=== PATIENT | female | born 1945 | race Caucasian/White ===

== ENCOUNTER 2023-11-15 07:51 | Inpatient (IN) | payer MEDICARE, OTHER, SELFPAY ==
[2023-11-15 08:23] VITALS: BP 106/60
[2023-11-15 08:37] VITALS: BMI 48.9
[2023-11-15 09:36] LABS: Hematocrit 37.2 % (37.0-47.0); Hemoglobin 12.5 g/dL (12.0-16.0); Mean Corp Hgb Conc. 33.6 g/dL (33.0-37.0); Mean Corpuscular Hgb 29.9 pg (27.0-31.0); Mean Platelet Volume 9.3 fL (7.4-10.4); Platelet Count 260 10^3/uL (130-400); Red Blood Cell Count 4.18 10^6/uL (4.20-5.40); Red Cell Dist. Width 13.2 % (11.5-14.5); White Blood Cell Count 7.3 10^3/uL (4.8-10.8)
--- NOTE | 2023-11-15 10:19 | W.PN.CARDCBS ---
Addendum entered and electronically signed by Xander Rubi MD 11/15/23 14:30:
Attending addendum: Patient seen and examined. PA note reviewed and findings confirmed by me. Briefly, this is a 78 y/o female with hx of PVI now with recurring atrial fibrillation. She presents today for Tikosyn loading.
Original Note:
Today's Communication / Plan
-
Reviewed Tikosyn loading with patient and , proceed with 500 mcg q 12 hours and follow ECG
Impression / Plan
-
PCP: Dr. Parker
Management Scientist: Blayne Chahal MD
Oncology: Dr. Pruitt
Impression:
Direct admission for Tikosyn loading 11/15/23
Persistent Afib
s/p PVI 05/28/21
Chronic Eliquis OAC
ILR in place since 03/15/23
HTN
Hyperlipidemia
SSS
RBBB
Asthma
STEVE/CPAP
GERD
Anxiety
OA/DJD
non obstructive CAD
h/o Hodgkin's lymphoma
progression of mediastinal lymphadenopathy by PET 05/27/23
Echo 07/19/20: EF 55-60%, normal RV size and function
Echo 03/10/23: following chemotherapy, stable EF
Plan:
-Patient was seen by Dr. Casanova in the office 11/12/23 for recurrence of Afib and offered direct admission for Tikosyn loading which was scheduled for 11/15/23. Patient previously had a PVI 05/28/21. She recurred with Afib 05/2022 and was arranged for an
elective CV, but then spontaneously converted to SR prior to that. She then was diagnosed with lymphoma and completed chemotherapy 12/2022. She has an ILR in place since 03/15/23. She had CVs in 2022, the most recent CV was 05/2023. She recurred with
Afib 08/2023. She has fatigue in Afib.
-CrCl calculcated by me on 11/15/23 was 74. QTc was 442 ms with cRBBB. Will start Tikosyn 500 mcg q 12 hours and follow QTc.
-Cont outpatient dose of felodipine 2.5 mg BID.
-Patient has not missed any doses of Eliquis 5 mg BID.
-Cont usual doses of Lasix 20 mg daily and olmesartan 20 mg daily. EF was stable and normal by last echo 03/10/23 through [facility] office.
-CMP and CBC ordered and reviewed. Labs stable and acceptable, will f/u in AM
Progress Note - Management Scientist
Subjective
Date of Service: November 15, 2023
She feels well, no chest pain
Objective
Labs:
11/15/23 09:26
Labs
Hgb 12.5 g/dL (12.0-16.0) 11/15/23 09:26
Hct 37.2 % (37.0-47.0) 11/15/23 09:26
Plt Count 260 10^3/uL (130-400) 11/15/23 09:26
Vital Signs and I&O:
Vital Signs
Temp Pulse Resp BP
98.1 F 67 16 106/60
11/15/23 08:33 11/15/23 08:45 11/15/23 08:33 11/15/23 08:23
Vital Signs
Temp Pulse Resp BP
98.1 F 67 16 106/60
11/15/23 08:33 11/15/23 08:45 11/15/23 08:33 11/15/23 08:23
Physical Exam
Physical Exam
GEN: No distress, AAOx3
HEENT: EOMI, MMM
LUNGS: CTA, no wheezes/rales
CV: Irreg irreg, S1/S2, no murmur
ABD: soft, BS+, NT/ND
EXT: No edema B/L
NEURO: Gross non-focal
SKIN: No rash
[2023-11-15 11:02] VITALS: BMI 48.9
[2023-11-15] MEDS: BENICAR PO (11:15)
[2023-11-15] MEDS: ZYRTEC PO (11:16)
[2023-11-15] MEDS: PROTONIX PO (11:16)
[2023-11-15] MEDS: LEXAPRO PO (11:16)
--- NOTE | 2023-11-15 11:17 | CM ---
Reviewed chart. Met with and Mrs. Klein to review discharge plans. She states prior to admission she resides with her spouse in a one and half story house with five steps to enter. She states she has a first floor set-up. She states prior to
admission she was independent with ambulation and adls. She states she does not have any DME in the home. She states she has a prescription plan with [facility] and uses [facility] in [place]. Will need to send a script to
[facility] for a three day supply of Dofetilide to go home with her. Will check with her pharmacy to check if they have it in stock and will check her co-pay for Dofetilide. Medical work-up in progress. The discharge plan is to return home with
her spouse when medically stable.
--- NOTE | 2023-11-15 11:20 | PTCARENOTE ---
Pt admitted this am for Tikosyn loading. Pt in afib, rate in the 50's to 60's. Pt denies any sob. Room air sat 97. Right sq port accessed by IV team.
[2023-11-15 11:31] LABS: ALT (SGPT) 14 U/L (0-35); AST (SGOT) 22 U/L (14-36); Alkaline Phosphatase 107 U/L (38-126); Blood Urea Nitrogen 25 mg/dl (7-17); Calcium 8.6 mg/dl (8.4-10.2); Carbon Dioxide 25 mmol/L (22-30); Chloride 106 mmol/L (98-107); Estimated Creatinine Clearance 74 ml/min; Glucose 90 mg/dl (70-99); Magnesium 2.1 mg/dl (1.6-2.3); Potassium 4.3 mmol/L (3.5-5.1); Sodium 139 mmol/L (135-145); Total Bilirubin 0.5 mg/dl (0.2-1.3); Total Protein 6.6 g/dl (6.3-8.2); eGFR > 60.00
--- NOTE | 2023-11-15 11:54 | W.CARD.TIKOS ---
Addendum entered and electronically signed by Xander Rubi MD 11/15/23 14:26:
Attending addendum: Patient seen and examined. PA note reviewed and findings confirmed. Will initiate Tikosyn. Patient has been compliant with oral anticoagulation. Will follow ECG's .
Original Note:
Initiate Tikosyn
-
I verify that the patient has not taken any verapamil (Isoptin/Calan), ketoconazole (Nizoral), cimetidine (Tagamet), trimethoprim (Trimpex), trimethoprim/sulfamethoxazole (Bactrim), megesterol (Megace), prochlorperazine (Compazine),
hydrochlorothiazide (HCTZ), dolutegravir (Tivicay) or any Class I or Class III anti-arrhythmic within the last three days
AND
I verify that the patient has not taken amiodarone within the last THREE months, or that the patient's amiodarone plasma concentration is <0.3 mcg/mL.
Creatinine 0.8 mg/dL (0.6-1.0) 11/15/23 09:26
Estimated Creat Clear 74 ml/min 11/15/23 09:26
CrCl calculated by me is 74
Does patient have a Ventricular Conduction Abnormality: Yes
I have assessed the baseline QTc interval (using QT for heart rate less than 60 bpm) and deemed the patient is appropriate for Dofetilide therapy. I understand that Tikosyn is contraindicated if the QTc is >440msec (500msec in patients with
ventricular conduction abnormalities).
Baseline QTc (in msec): 442
QTc interval is greater than 440msec without conduction abnormality OR greater than 500msec with a conduction abnormality, but acceptable to proceed per Cardiology attending.
Reason for Administration with Prolonged QTc: Bundle Branch Block
Ordering Physician: Scott Casanova
[2023-11-15 12:15] VITALS: BP 135/92
[2023-11-15] MEDS: TIKOSYN 500 MCG PO ×2 (12:21→23:03)
[2023-11-15 12:49] VITALS: BP 130/66
[2023-11-15] MEDS: LASIX PO (14:07)
[2023-11-15] MEDS: PLENDIL EXTENDED RELEASE PO (14:08)
[2023-11-15 17:29] VITALS: BP 136/76
[2023-11-15] MEDS: SINGULAIR 10 MG PO (17:39)
--- NOTE | 2023-11-15 17:46 | PTCARENOTE ---
Pt remains in afib, rare pvc. Rate in the 40's to 60's. OOB independently in the room. Denies any sob.
[2023-11-15 18:58] VITALS: BP 143/86
[2023-11-15] MEDS: ELIQUIS 5 MG PO (19:33)
[2023-11-15 22:59] VITALS: BP 128/70
[2023-11-15] MEDS: NEURONTIN 300 MG PO (23:03)
[2023-11-16 01:10] VITALS: BP 136/72
--- NOTE | 2023-11-16 02:00 | PTCARENOTE ---
QTc following dose #2 Tikosyn 489 ms. EKG showing 'wide QRS rhythm', P-waves difficult to see (? A-fib -vs- NSR, rate 50's). EKG repeated reading same results for rhythm ('Wide QRS' ; QTc 479). Also difficult to see on tele. EKG's shown to PA
Cornelius Shipley, states rhythm is NSR. Otherwise pt. sleeping when undisturbed, no complaints pain/discomfort.
[2023-11-16 04:01] LABS: Blood Urea Nitrogen 27 mg/dl (7-17); Calcium 8.8 mg/dl (8.4-10.2); Carbon Dioxide 29 mmol/L (22-30); Chloride 102 mmol/L (98-107); Estimated Creatinine Clearance 74 ml/min; Glucose 94 mg/dl (70-99); Potassium 4.2 mmol/L (3.5-5.1); Sodium 138 mmol/L (135-145); eGFR > 60.00
[2023-11-16 04:49] LABS: Hepatitis C Antibody Negative (Negative)
[2023-11-16 07:07] VITALS: BP 131/89
[2023-11-16] MEDS: LEXAPRO 5 MG PO (08:18)
[2023-11-16] MEDS: PROTONIX 40 MG PO (08:18)
[2023-11-16] MEDS: PLENDIL EXTENDED RELEASE 5 MG PO (08:18)
[2023-11-16] MEDS: ZYRTEC 10 MG PO (08:18)
[2023-11-16] MEDS: LASIX 20 MG PO (08:18)
[2023-11-16] MEDS: BENICAR 20 MG PO (08:18)
[2023-11-16] MEDS: ELIQUIS 5 MG PO ×2 (08:18→20:06)
[2023-11-16] MEDS: TIKOSYN 500 MCG PO ×2 (10:21→21:02)
--- NOTE | 2023-11-16 11:25 | CM ---
Reviewed chart. Telephone call to Bro,([phone]) to check on co-pay for Dofetilide. She has [facility] pharmacy benefit and her co-pay would be $8.00 a month. Reviewed co-pay with Mrs. Klein and she is agreeable to the co-pay.
Prior to admission she resides with her spoise in a one and half story home with five steps to enter. She has a first floor. Prior to admission she was independent with ambulation and adls. She does not have any DME in the home. She has a
prescription plan with [facility] plan. Will need a three day script to go to [facility] to go home with her. Will check with [facility] to see if they have Dofetilide in stock. Medical work-up in progress. The
discharge plan is to return home with her spouse when medically stable.
[2023-11-16 11:33] VITALS: BP 125/84
--- NOTE | 2023-11-16 15:09 | W.PN.CARDCBS ---
Addendum entered and electronically signed by Mindi Fagan MD 11/16/23 18:23:
I saw and examined the patient.
The Felt Finisher's note was reviewed and I agree with the note.
Comment: No acute complaints. Doing well overall
Appears comfortable, +JVD, +bibasilar rales, irreg irregular rhythm, Normal S1 an S2. warm ext. Abd soft, NT, ND
Vitals and labs reviewed. No significant events on tele, still in slow Afib.
Plan:
1. NPO after MN forDCCV in AM. Tolerating Tikosyn well so far. Stable QTc. Recheck ECG in AM.
Mindi Fagan MD, [facility], [facility]
Original Note:
Today's Communication / Plan
-
CV in AM
QTc stable after 3rd dose of Tikosyn 500 mcg q 12 hours that was given this morning
Impression / Plan
-
PCP: Dr. Parker
Speech Language Pathology Assistant: Blayne Chahal MD
Oncology: Dr. Pruitt
Impression:
Direct admission for Tikosyn loading 11/15/23
Persistent Afib
s/p PVI 05/28/21
Chronic Eliquis OAC
ILR in place since 03/15/23
HTN
Hyperlipidemia
SSS
RBBB
Asthma
STEVE/CPAP
GERD
Anxiety
OA/DJD
non obstructive CAD
h/o Hodgkin's lymphoma
progression of mediastinal lymphadenopathy by PET 05/27/23
Echo 07/19/20: EF 55-60%, normal RV size and function
Echo 03/10/23: following chemotherapy, stable EF
Plan:
-QTc stable at 466 ms after 3rd dose of Tikosyn 500 mcg q 12 hours given 11/16/23 AM.
-Patient remains in atrial fibrillation and will plan on CV in AM
-Cont outpatient dose of felodipine 2.5 mg BID.
-Patient has not missed any doses of Eliquis 5 mg BID.
-Cont usual doses of Lasix 20 mg daily and olmesartan 20 mg daily. EF was stable and normal by last echo 03/10/23 through [facility] office.
-Labs are stable 11/16/23.
HPI: Patient was seen by Dr. Casanova in the office 11/12/23 for recurrence of Afib and offered direct admission for Tikosyn loading which was scheduled for 11/15/23. Patient previously had a PVI 05/28/21. She recurred with Afib 05/2022 and was arranged
for an elective CV, but then spontaneously converted to SR prior to that. She then was diagnosed with lymphoma and completed chemotherapy 12/2022. She has an ILR in place since 03/15/23. She had CVs in 2022, the most recent CV was 05/2023. She recurred
with Afib 08/2023. She has fatigue in Afib.
Progress Note - Speech Language Pathology Assistant
Subjective
Date of Service: November 16, 2023
She feels well
Objective
Labs:
11/15/23 09:26
11/16/23 01:33
Labs
Hgb 12.5 g/dL (12.0-16.0) 11/15/23 09:26
Hct 37.2 % (37.0-47.0) 11/15/23 09:26
Plt Count 260 10^3/uL (130-400) 11/15/23 09:26
Sodium 138 mmol/L (135-145) 11/16/23 01:33
Potassium 4.2 mmol/L (3.5-5.1) 11/16/23 01:33
BUN 27 mg/dl (7-17) H 11/16/23 01:33
Creatinine 0.8 mg/dL (0.6-1.0) 11/16/23 01:33
Glucose 94 mg/dl (70-99) 11/16/23 01:33
Vital Signs and I&O:
Vital Signs
Temp Pulse Resp BP Pulse Ox
98.3 F 56 16 125/84 97
11/16/23 11:33 11/16/23 12:00 11/16/23 11:33 11/16/23 11:33 11/16/23 11:33
Vital Signs
Temp Pulse Resp BP Pulse Ox
98.3 F 56 16 125/84 97
11/16/23 11:33 11/16/23 12:00 11/16/23 11:33 11/16/23 11:33 11/16/23 11:33
Intake & Output
11/14/23 11/15/23 11/16/23 11/17/23
06:59 06:59 06:59 06:59
Intake Total 240 / 240
Balance 240 / 240
Physical Exam
Physical Exam
GEN: No distress, AAOx3
HEENT: EOMI, MMM
LUNGS: CTA, no wheezes/rales
CV: Irreg irreg, S1/S2, no murmur
ABD: soft, BS+, NT/ND
EXT: No edema B/L
NEURO: Gross non-focal
SKIN: No rash
[2023-11-16 15:52] VITALS: BP 135/63
[2023-11-16] MEDS: SINGULAIR 10 MG PO (17:55)
--- NOTE | 2023-11-16 17:55 | PTCARENOTE ---
Pt with no c/o other than a flushed face feeling this afternoon. Heat turned down in the room and pt stated she felt better. Remains in atrial flutter, rate in the 50's to 60's.
[2023-11-16 19:19] VITALS: BP 132/61
[2023-11-16] MEDS: NEURONTIN 300 MG PO (21:02)
[2023-11-16 22:50] VITALS: BP 124/69
[2023-11-17 03:42] VITALS: BP 118/74
[2023-11-17 06:00] VITALS: BMI 48.8
[2023-11-17 07:42] VITALS: BP 128/64
--- NOTE | 2023-11-17 08:17 | W.PN.CARDCBS ---
Addendum entered and electronically signed by Katie Odom PA-C 11/17/23 13:15:
[id number]
Addendum entered and electronically signed by Mindi Fagan MD 11/17/23 13:14:
I saw and examined the patient.
The Hide Selector's note was reviewed and I agree with the note.
Comment: Overall patient is doing well and does not offer any significant complaints.
Vital signs are stable. Lab work reviewed. EKGs with stable QTc even after fifth dose of Tikosyn.
She converted to sinus rhythm after fourth dose of Tikosyn.
Recommendations:
1. Given patient is very keen on reducing her medications, we agreed to cut back her felodipine back to 2.5 mg daily as she used to be on.
2. She will continue her Tikosyn as we start discharge planning with tentative plan for discharge home later today.
3. 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
Mindi Fagan MD, [facility], [facility]
Original Note:
Today's Communication / Plan
-
Converted after 4th dose of Tikosyn
Check ECG after 5th dose that was given this morning
Decrease felodipine to 2.5 mg daily
D/C to home pending above
Impression / Plan
-
PCP: Dr. Parker
Laborer Laboratory: Blayne Chahal MD
Oncology: Dr. Pruitt
Impression:
Direct admission for Tikosyn loading 11/15/23
Persistent Afib
s/p PVI 05/28/21
Chronic Eliquis OAC
ILR in place since 03/15/23
HTN
Hyperlipidemia
SSS
RBBB
Asthma
STEVE/CPAP
GERD
Anxiety
OA/DJD
non obstructive CAD
h/o Hodgkin's lymphoma
progression of mediastinal lymphadenopathy by PET 05/27/23
Echo 07/19/20: EF 55-60%, normal RV size and function
Echo 03/10/23: following chemotherapy, stable EF
Plan:
-Patient spontaneously converted to SR after 4th dose of Tikosyn that was given 11/16/23 night. Remains in SR 11/17/23.
-QTc stable at 488 ms in SR by ECG 11/16/23 PM
-5th dose of Tikosyn given 11/17/23 morning. Pending ECG she can be d/c'd to home
-HRs 55-65 in SR. Patient is not lightheaded or dizzy
-Patient reports that felodipine was started for HTN. Patient is asking if she can reduce dose based on BPs this admission, will reduce felodipine to 2.5 mg daily. Patient can monitor BP at home
-Patient has not missed any doses of Eliquis 5 mg BID.
-Cont usual doses of Lasix 20 mg daily and olmesartan 20 mg daily. EF was stable and normal by last echo 03/10/23 through [facility] office.
-D/C to home 11/17/23 pending final ECG
HPI: Patient was seen by Dr. Casanova in the office 11/12/23 for recurrence of Afib and offered direct admission for Tikosyn loading which was scheduled for 11/15/23. Patient previously had a PVI 05/28/21. She recurred with Afib 05/2022 and was arranged
for an elective CV, but then spontaneously converted to SR prior to that. She then was diagnosed with lymphoma and completed chemotherapy 12/2022. She has an ILR in place since 03/15/23. She had CVs in 2022, the most recent CV was 05/2023. She recurred
with Afib 08/2023. She has fatigue in Afib.
Progress Note - Laborer Laboratory
Subjective
Date of Service: November 17, 2023
She feels well, she thinks she already feels better being in SR today
Objective
Labs:
11/15/23 09:26
11/16/23 01:33
Labs
Hgb 12.5 g/dL (12.0-16.0) 11/15/23 09:26
Hct 37.2 % (37.0-47.0) 11/15/23 09:26
Plt Count 260 10^3/uL (130-400) 11/15/23 09:
Sodium 138 mmol/L (135-145) 11/16/23 01:33
Potassium 4.2 mmol/L (3.5-5.1) 11/16/23 01:33
BUN 27 mg/dl (7-17) H 11/16/23:33
Creatinine 0.8 mg/dL (0.6-1.0) 11/16/23 01:33
Glucose 94 mg/dl (70-99) 11/16/23 01:33
Vital Signs and I&O:
Vital Signs
Temp Pulse Resp BP Pulse Ox
98.3 F 54 20 128/64 95
11/17/23 07:39 11/17/23 08:00 11/17/23 07:39 11/17/23 07:42 11/17/23 03:20
Vital Signs
Temp Pulse Resp BP Pulse Ox
98.3 F 54 20 128/64 95
11/17/23 07:39 11/17/23 08:00 11/17/23 07:39 11/17/23 07:42 11/17/23 03:20
Intake & Output
11/15/23 11/16/23 11/17/23 11/18/23
06:59 06:59 06:59 06:59
Intake Total 240 / 240
Balance 240 / 240
Physical Exam
Physical Exam
GEN: NAD, AAOx3
HEENT: EOMI
LUNGS: CTA, no wheezes/rales
CV: Reg, S1/S2, no murmur
ABD: soft, BS+, NT/ND
EXT: No edema B/L
NEURO: Gross non-focal
SKIN: No rash
[2023-11-17] MEDS: LEXAPRO 5 MG PO (08:28)
[2023-11-17] MEDS: ELIQUIS 5 MG PO (08:28)
[2023-11-17] MEDS: BENICAR 20 MG PO (08:28)
[2023-11-17] MEDS: ZYRTEC 10 MG PO (08:28)
[2023-11-17] MEDS: PLENDIL EXTENDED RELEASE 5 MG PO (08:29)
[2023-11-17] MEDS: LASIX 20 MG PO (08:29)
[2023-11-17] MEDS: PROTONIX 40 MG PO (08:29)
[2023-11-17] MEDS: TIKOSYN 500 MCG PO (08:29)
--- NOTE | 2023-11-17 09:59 | CM ---
Reviewed chart. Telephone call to [facility] to check if Dofetilide 500 mcg is in stock. [facility] states they do not have Dofetilide in stock. [facility] states they can order it once they get a script. It will take a day to get
in. Updated N.P. She sent three day script of [facility]ilide to [facility] to go [facility] with her. N.P will send script to [facility]. Met with Mrs. Klein to review above with her. Prior to admission she resides with her spouse in a one and
half story home with five steps to enter. Prior to admission she was independent with ambulation and adls. She does not have any DME in the home. She has [facility] [facility] prescription plan and uses [facility] in [place]
Medical work-up in progress. The discharge plan is to return home with her spouse when medically stable.
[2023-11-17 11:50] VITALS: BP 131/74
--- NOTE | 2023-11-17 13:11 | W.DS.TRANS ---
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
-
Discharge Instructions:
Discharge Diagnosis/Procedures Tikosyn loading for persistent atrial
fibrillation
Diet Regular
Activity As tolerated
Driving Restrictions As prior to admission
Bathing Restrictions None
Instructions:
Stand-Alone Forms:
Changes to Home Medications: Yes
Discharge Medications:
DC Medications w/original date entered in [employer]
apixaban 5 mg tablet (Eliquis) 5 mg PO BID Blood Clot Prevention/Tx 04/25/21
cetirizine 10 mg tablet 10 mg PO HS Allergies 04/25/21
montelukast 10 mg tablet 10 mg PO HS Lung/Breathing Issues 04/25/21
olmesartan 20 mg tablet 20 mg PO DAILY Blood Pressure 04/25/21
acetaminophen 650 mg tablet,extended release 650 mg PO BIDPRN PRN mild pain 11/15/23
biotin 10,000 mcg capsule 10,000 mcg PO DAILY Supplement 11/15/23
escitalopram oxalate 10 mg tablet 5 mg PO DAILY Mental Health/Anxiety 11/15/23
fluticasone propionate 50 mcg/actuation nasal spray,suspension 1 spray intranasal BID Allergies 11/15/23
furosemide 20 mg tablet 20 mg PO DAILY Fluid Retention/Swelling 11/15/23
gabapentin 300 mg capsule 600 mg PO HS Neurological Condition 11/15/23
omeprazole 20 mg capsule,delayed release 20 mg PO BID Gastrointestinal Issue 11/15/23
vit C 250 mg-vit E 90 mg-zinc 40 mg-copper 1 [id number] capsule (PreserVision AREDS-2) 1 tab PO BID Supplement 11/15/23
dofetilide 500 mcg capsule 500 mcg PO Q12 Arrhythmia #60 caps 11/17/23
felodipine 2.5 mg tablet,extended release 24 hr 2.5 mg PO DAILY #30 tabs 11/17/23
Home Medication Changes
Reduced dose of felodipine to 2.5 mg daily
New to Tikosyn
Pending Results: No
== END 2023-11-17 14:41 | disposition home or self-care (01) | DRG 310 ==
LOC: IVU 07:51
PROVIDERS: Physician Assistant Medical; ADMITTING PHYSICIAN Internal Medicine Cardiovascular Disease; FAMILY PHYSICIAN Family Medicine
DX: I48.19 Other persistent atrial fibrillation (principal); Z79.01 Long term (current) use of anticoagulants; I10 Essential (primary) hypertension; E78.5 Hyperlipidemia, unspecified; I49.5 Sick sinus syndrome
CPT/HCPCS: 80048; 80053; 83735; 85027; 86803; 93005